=== PATIENT | female | born 1960 | race Caucasian/White ===

== ENCOUNTER 2019-08-21 08:18 | Day surgery (SDC) | payer OTHER, SELFPAY ==
[2019-08-21 08:45] VITALS: BP 140/81; PULSE 67; RESP 16; TEMP 37.1; O2SAT 98; BMI 25.5
[2019-08-21] MEDS: Lactated Ringers 1,000 ML 100 ML IV (08:57)
[2019-08-21 11:58] LABS: AST(SGOT) 26 U/L (15-37); Alanine Aminotransfer ALT/SGPT 34 U/L (13-56); Albumin, Serum 3.7 g/dL (3.2-5.0); Alkaline Phosphatase 66 U/L (45-117); Anion Gap 4 (5-15); BUN 15 mg/dL (7-18); BUN/Creat Ratio 17.2 RATIO (10-20); Calcium,Total 9.4 mg/dL (8.5-10.1); Chloride 108 mmol/L (98-107); Creatinine, Serum 0.87 mg/dL (0.55-1.02); EST Glomerular Filtration Rate 71 mL/min (>60); Est Glom Filt Rate - Afr Amer 86 mL/min (>60); Estimated Creatinine Clearance 56.43 ml/min; Globulin 3.7 g/dL (2.2-4.2); Glucose 84 mg/dL (74-106); Potassium 3.9 mmol/L (3.5-5.1); Protein, Total 7.4 g/dL (6.4-8.2); Sodium Level 141 mmol/L (136-145)
[2019-08-21] MEDS: Lidocaine 4% 50 ML Bottle (13:29)
[2019-08-21] MEDS: Silver Nitrate (BKC) 1 EACH (13:30)
[2019-08-21] MEDS: Oxymetazoline 0.05% 1 SPRAY SPRAY.BTL 15 SPRAY (13:30)
--- NOTE | 2019-08-21 13:35 | PCM.OPRPT ---
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 She had had a nasal septal button placed 20 years ago and recently has suffered development of nasal granulation and chronic ulceration from the pressure points at the edges of her septal button. Removal and replacement with a better fitting septal button was advised and she was agreeable to proceed. The risks, alternatives, potential complications, and benefits were discussed at length and any questions answered to the patient and/or caregiver's satisfaction. Witnessed informed consent was obtained in the office, and the patient and/or caregiver was agreeable to proceed. Procedure went as follows: The patient was identified in the preoperative holding and brought to the operating room, was placed under general anesthesia and intubated. When appropriate anesthesia was obtained, pledgets soaked in a 50-50 mixture of oxymetazoline and 4% topical lidocaine were placed to decongest the nasal mucosa. There is noted to be a very old nasal septal button and a large granuloma along the nasal sill on the left and superiorly at the nasal apex on the right. The septal button was then sharply transected along the bridging segment releasing the to have this to allow for removal from the nasal passage. The areas of granulation tissue was then sharply transected with the base cauterized with silver nitrate for hemostasis. This allowed for visualization of the nasal cavity where there is noted to be a anterior nasal septal perforation approximately 1 cm x 1 cm in size. A new Silastic nasal button was then placed after trimming it to conform well to the space and avoid inferior and superior contact points. This laid well after placement within the nasal passage covering the septal perforation. The patient was then returned to anesthesia, revived and extubated having tolerated the procedure well. Type of Anesthesia:: General Anesthesiologist: Garo Ricardo Special Medications: silver nitrate Specimen's removed: none Drains: none Estimated Blood Loss (mL): 20 mL Fluids Replaced: 600 Grafts/Implants Used: silastic nasal button - Complications none - Admit VTE Documentation VTE Present on Admission: No VTE Mechan Device Prophylaxis: SCD's, None VTE Pharm Prophylaxis ordered?: No Reason prophylaxis not ordered:: Procedure Not Indicated
--- NOTE | 2019-08-21 13:42 | DCINST_ITS ---
- Discharge Diagnoses Current Active Problems: Current Active and Chronic Problems Nasal septal perforation (Chronic) Nasal septal granuloma (Chronic) You will use the following diet at home:: Regular Discharge Activity: Return to Normal Activity Call your doctor if your incision/area has: Continuous Slow Oozing, Sudden Increased Bleeding Call your doctor if you observe: Fever of 101 or Higher, Uncontrolled pain Allergies/Adverse Reactions: Allergies iodine Allergy (Verified 08/21/19 08:47) Hives cpap mask Allergy (Uncoded 08/21/19 08:47) Swelling Medications to take at Discharge Famotidine [Pepcid] 20 mg PO DAILY PRN 08/14/19 Fenofibrate 54 mg PO QHS 08/14/19 Losartan Potassium [Cozaar] 25 mg PO BID 08/14/19 Mv-Mn/Folic AC/Calcium/Vit K1 [Women's 50 Plus Daily Formula] 1 ea PO DAILY 08/14/19 Zolpidem Tartrate [Ambien] 2.5 mg PO QHS 08/14/19 Primary Care Physician: GAYATRI DOE [Other] Test Results: Test results from this visit will be discussed in further detail at your follow- up appointment, if applicable. Please Follow Up With: Jairo Hernandez MD - [place] office When: 2 weeks
[2019-08-21 13:45] VITALS: BP 132/72; BP 140/81; PULSE 82; RESP 16; TEMP 36.4; O2SAT 96
--- NOTE | 2019-08-21 13:47 | EKG12_ITS ---
Test Reason : Blood Pressure : / mmHG Vent. Rate : 073 BPM Atrial Rate : 073 BPM P-R Int : 176 ms QRS Dur : 088 ms QT Int : 400 ms P-R-T Axes : 065 040 053 degrees QTc Int : 440 ms Normal sinus rhythm Normal ECG No previous ECGs available Confirmed by DM LYMAN, EDUARD ([id number]), information consultant ELSA BLOCK ([id number]) on 08/25/2019 12:34:53 PM Referred By: Jairo Hernandez Confirmed By:EDUARD CHAIDEZ MD
[2019-08-21 14:00] VITALS: BP 140/81; BP 151/84; PULSE 70; RESP 16; O2SAT 98
[2019-08-21 14:15] VITALS: BP 140/81; BP 155/79; PULSE 65; RESP 16; O2SAT 98
[2019-08-21 14:30] VITALS: BP 140/81; BP 165/68; PULSE 71; RESP 16; TEMP 36.6; O2SAT 98
[2019-08-21 15:02] VITALS: BP 140/81
== END 2019-08-21 15:07 | disposition home or self-care (01) ==
LOC: SDC 08:26 → AC 08:27
PROVIDERS: Anesthesiology; Referring Provider Otolaryngology; Visit Provider Otolaryngology
PROC: (CPT 30520; principal; 2019-08-21 10:50)
DX: J34.89 Other specified disorders of nose and nasal sinuses (principal); L92.8 Other granulomatous disorders of the skin and subcutaneous tissue; J34.0 Abscess, furuncle and carbuncle of nose; I10 Essential (primary) hypertension; K21.9 Gastro-esophageal reflux disease without esophagitis; E78.00 Pure hypercholesterolemia, unspecified; Z79.899 Other long term (current) drug therapy
CPT/HCPCS: 00160; 30220; 80053; 93005; J7030; J7120; J2405